=== PATIENT | female | born 1980 | race Caucasian/White ===

== ENCOUNTER 2023-07-22 20:43 | Emergency (ER) | payer OTHER ==
[~2023-07-22] VITALS: Ht 172.7 cm; Wt 80.0 kg
[2023-07-22 20:56] VITALS: O2SAT 99
[2023-07-22] MEDS: SODIUM CHLORIDE 0.9% 1,000 ML IV ONE (21:27)
[2023-07-22] MEDS: ONDANSETRON HCL 4MG/2ML INJ IV STA (21:27)
[2023-07-22] MEDS: KETOROLAC 30MG/ML VIAL IV STA (21:27)
[2023-07-22 21:46] LABS: BASOPHILS % 0.4 % (0.0-2.0); EOSINOPHILS % 0.8 % (0.0-5.0); HEMATOCRIT. 39.1 % (36.0-48.0); LYMPHOCYTES % 8.7 % (20.0-50.0); MEAN CORPUSCULAR HEMOGLOBIN 28.3 pg (28.0-32.0); MEAN CORPUSCULAR HGB CONC 33.4 g/dL (31.0-37.0); MEAN CORPUSCULAR VOLUME 84.9 fL (81.0-99.0); MEAN PLATELET VOLUME 9.5 fl (7.4-10.4); MONOCYTES % 3.4 % (2.0-8.0); NEUTROPHILS % 86.7 % (40.0-76.0); PLATELET 241 x1000/uL (130-400); RED CELL DISTRIBUTION WIDTH 14.5 % (11.6-14.6); WHITE BLOOD COUNT 12.1 x1000/uL (4.5-11.0)
[2023-07-22 21:52] LABS: CHLORIDE 109 mEq/L (98-107); POTASSIUM 3.8 mEq/L (3.5-5.1); SODIUM 140 mEq/L (136-145)
[2023-07-22 21:53] LABS: CARBON DIOXIDE 25 mEq/L (21-32)
[2023-07-22 21:54] LABS: CALCIUM 9.5 mg/dL (8.7-10.4)
[2023-07-22 21:56] LABS: PROTHROMBIN TIME 11.3 sec (9.6-11.0)
[2023-07-22 21:58] LABS: CREATININE 0.9 mg/dL (0.6-1.0); GLUCOSE 138 mg/dL (70-105)
[2023-07-22 21:59] LABS: UREA NITROGEN BLOOD 13 mg/dL (9-23)
[2023-07-22 22:00] LABS: ALANINE AMINOTRANSFERASE 10 IU/L (10-49); ASPARTATE AMINOTRANSFERASE 15 IU/L (<34)
[2023-07-22 22:01] LABS: BILIRUBIN DIRECT 0.2 mg/dL (<=3.0); BILIRUBIN TOTAL 0.4 mg/dL (0.1-1.0); PROTEIN TOTAL 7.3 g/dL (6.0-8.3)
[2023-07-22 22:54] LABS: HCG SCREEN NEGATIVE
[2023-07-22 23:37] LABS: CLARITY URINE CLEAR (CLEAR); COLOR URINE YELLOW (YELLOW); GLUCOSE URINE NEGATIVE (NEGATIVE); KETONES URINE 1+ (NEGATIVE); LEUKOCYTE ESTERASE URINE NEGATIVE (NEGATIVE); NITRITE URINE NEGATIVE (NEGATIVE); OCCULT BLOOD URINE 3+ (NEGATIVE); PROTEIN URINE NEGATIVE (NEGATIVE); SPECIFIC GRAVITY URINE 1.018 (1.005-1.030); UROBILINOGEN URINE 0.2 E.U./dL (0.2-1.0)
[2023-07-23 00:10] LABS: SQUAMOUS EPITHELIAL CELL URINE FEW /lpf (RARE/1+); WBC URINE 0-2 /hpf (0-2)
[2023-07-23 00:11] LABS: BACTERIA URINE NONE SEEN
[2023-07-23] MEDS ORDERED: TAMS-11 MT (03:22)
[2023-07-23] MEDS ORDERED: IBUP-2029 MT (03:22)
[2023-07-23 03:50] VITALS: BP 130/87; PULSE 86; RESP 15; TEMP 98.8
== END 2023-07-23 03:53 | disposition home or self-care (01) ==
LOC: ER 20:43
DX: N20.0 Calculus of kidney (principal); N13.30 Unspecified hydronephrosis; D64.9 Anemia, unspecified; Z98.890 Other specified postprocedural states
CPT/HCPCS: 99285; 96374; 96361; 96375; 80076; 80048; 81003; 84703; 83690; 85025; 85610; 36415; 74176; J1885; J2405; J7030